=== PATIENT | male | born 1975 | race Caucasian/White ===

== ENCOUNTER → 2018-07-28 | Outpatient (CLI) | payer BC ==
--- NOTE | 2018-07-28 18:15 | XR ---
EXAMINATION TYPE: XR KUB DATE OF EXAM: 07/28/2018 COMPARISON: 04/11/2009 HISTORY: Abdominal pain TECHNIQUE: 2 views supine FINDINGS: There is no sign of intestinal obstruction or pneumoperitoneum. Fecal pattern is normal. Th ere are phleboliths in the pelvis. There is no evidence of a mass. There are no pathologic calcificat ions over the kidneys. IMPRESSION: Nonacute abdomen. No change.
== END | disposition home or self-care (01) ==
LOC: RADXRMAIN 16:20
PROVIDERS: ATTEND Urology
DX: N20.0 Calculus of kidney (principal)
CPT/HCPCS: 74018

== ENCOUNTER → 2018-08-01 | Outpatient (CLI) | payer BC ==
--- NOTE | 2018-08-01 11:06 | CT ---
EXAMINATION TYPE: CT abdomen pelvis wo con DATE OF EXAM: 08/01/2018 COMPARISON: None HISTORY: Right flank pain, history of stones. CT DLP: 911.8 mGycm Automated exposure control for dose reduction was used. TECHNIQUE: Helical acquisition of images was performed from the lung bases through the pelvis. FINDINGS: LUNG BASES: No significant abnormality is appreciated. LIVER/GB: No significant abnormality is appreciated. PANCREAS: No significant abnormality is seen. SPLEEN: Accessory spleen noted. ADRENALS: No significant abnormality is seen. KIDNEYS: No renal stones or hydronephrosis. ADENOPATHY: None visualized. OSSEOUS STRUCTURES: No significant abnormality is seen. BOWEL: Small hiatal hernia noted. Previous surgery in the epigastric. Bowel gas pattern nonspecific. Extensive normal OTHER: Surgical clip adjacent to the liver. Calcified phleboliths in the pelvis. Bladder demonstrates no definite calculi. Mild haziness surrounding the mesenteric vasculature to be associated with a me senteritis or mild vasculitis correlate clinically. IMPRESSION: 1. No hydronephrosis or nephrolithiasis. 2. Mild haziness surrounding the mesenteric vasculature can be associated with a mild mesenteritis or vasculitis correlate clinically. Case discussed with referring physician. Pancreatitis felt less lik tan, correlate with serum pancreatic enzymes also recommended. 3. Small hiatal hernia.
== END | disposition home or self-care (01) ==
LOC: RADCTMAIN 10:28
PROVIDERS: ATTEND Urology
DX: K44.9 Diaphragmatic hernia without obstruction or gangrene (principal); R93.5 Abnormal findings on diagnostic imaging of other abdominal regions, including retroperitoneum; Z87.442 Personal history of urinary calculi
CPT/HCPCS: 74176